=== PATIENT | male | born 1985 | race African-American/Black ===

== ENCOUNTER 2017-03-23 16:49 | Emergency (ER) | payer OTHER ==
[~2017-03-23] VITALS: Ht 175.3 cm; Wt 89.5 kg
[2017-03-23] MEDS ORDERED: LIDOCAINE HCL 1% 20 ML VIAL INJ ONE (17:45)
[2017-03-23] MEDS ORDERED: BACITRACIN 0.9 GM PACKET OINTMENT TP ONE (18:15)
[2017-03-23 18:19] VITALS: BP 135/80
== END 2017-03-23 18:48 | disposition home or self-care (01) ==
LOC: EMS 16:51
DX: S71.112A Laceration without foreign body, left thigh, initial encounter (principal); F17.210 Nicotine dependence, cigarettes, uncomplicated; V94.9XXA Unspecified water transport accident, initial encounter; Y93.I9 Activity, other involving external motion; Y92.89 Other specified places as the place of occurrence of the external cause; Y99.8 Other external cause status
CPT/HCPCS: 12001; 99283; J3490

== ENCOUNTER 2017-03-29 09:39 | Emergency (ER) | payer OTHER ==
[~2017-03-29] VITALS: Ht 177.8 cm; Wt 86.4 kg
[2017-03-29 11:22] VITALS: BP 135/69
== END 2017-03-29 11:23 | disposition home or self-care (01) ==
LOC: EMS 09:41
DX: Z48.02 Encounter for removal of sutures (principal); F17.210 Nicotine dependence, cigarettes, uncomplicated
CPT/HCPCS: 99281